=== PATIENT | female | born 1990 | race Caucasian/White ===

== ENCOUNTER 2022-01-22 07:05 | Inpatient (IN) | payer OTHER ==
[~2022-01-22] VITALS: Ht 175.3 cm; Wt 126.1 kg
--- NOTE | 2022-01-22 08:10 | NUR ---
RT COLLECTED RAPID COVID, FLU, AND RSV SWABS USING IN HOUSE LAB WITH NO COMPLICATIONS AT THIS TIME.
--- NOTE | 2022-01-22 10:20 | PR ---
[facility] [address] [facility] [place], [place] [address] Signed Progress Notes IP Datetime Report Generated by CPN: 01/22/2022 10:20 PROGRESS NOTES: [id number] Impression: Normal Progression of Labor Procedures: Artificial ROM; Scalp Electrode Plan: Continue Present Management; Anticipate Vaginal Delivery VITAL SIGNS: [id number] Vital Signs: Reviewed; Within Normal Limits EXAM: [id number] Dilatation: 8.0 Effacement: 95 Station: -2 Contractions: every 2-3 minutes MEMBRANES: [id number] Membranes Status: Ruptured Comments: Tolerating contractions, doing well. DIfficulty keeping FHR monitored, so scalp electrode applied. FETUS A: [id number] FHR Baseline: 145 Variability: Moderate 6-25bpm Accelerations: 15X15 FETUS B: [id number] Signing Physician: Ermias Babcock MD Copies: ~ *Electronically Signed* 01/22/22 1020 ERMIAS BABCOCK MD PATIENT NAME: AGNES HURST PROGRESS NOTE DATE OF : [birth year] PHYSICIAN: ERMIAS BABCOCK MD RPT #: [id number] REPORT IS CONFIDENTIAL AND NOT TO BE RELEASED WITHOUT AUTHORIZATION
--- NOTE | 2022-01-22 10:49 | PR ---
[facility] [address] [facility] [place], [place] [address] Signed Progress Notes IP Datetime Report Generated by CPN: 01/22/2022 10:49 PROGRESS NOTES: [id number] Impression: Normal Progression of Labor Procedures: Artificial ROM; Scalp Electrode Plan: Continue Present Management; Anticipate Vaginal Delivery VITAL SIGNS: [id number] Vital Signs: Reviewed; Within Normal Limits EXAM: [id number] Dilatation: 9.0 Effacement: 95 Station: -1 Contractions: every 2-3 minutes MEMBRANES: [id number] Membranes Status: Ruptured ROM Note: By Dr. Babcock Comments: Beginning to feel pushy, still with anterior lip, tried "Hands-Knees", will try on left side. FETUS A: [id number] FHR Baseline: 145 Variability: Moderate 6-25bpm Accelerations: 15X15 FETUS B: [id number] Signing Physician: Ermias Babcock MD Copies: ~ *Electronically Signed* 01/22/22 1049 ERMIAS BABCOCK MD PATIENT NAME: AGENS HURST PROGRESS NOTE DATE OF : [birth year] PHYSICIAN: ERMIAS BABCOCK MD RPT #: [id number] REPORT IS CONFIDENTIAL AND NOT TO BE RELEASED WITHOUT AUTHORIZATION
--- NOTE | 2022-01-22 11:27 | PR ---
[facility] [address] [place], [place] [address] Signed Progress Notes IP Datetime Report Generated by CPN: 01/22/2022 11:27 PROGRESS NOTES: [id number] Impression: Normal Progression of Labor Other Impressions: Slow progress Procedures: Artificial ROM; Scalp Electrode Other Procedures: Call for Epidural Plan: Continue Present Management; Anticipate Vaginal Delivery VITAL SIGNS: [id number] Vital Signs: Reviewed; Within Normal Limits EXAM: [id number] Dilatation: 9.5 Effacement: 95 Station: -1 Contractions: every 2-3 minutes MEMBRANES: [id number] Membranes Status: Ruptured ROM Note: By Dr. Babcock Comments: Patient getting very uncomfortable, still with anterior lip despite "Hands-Knees", Left lateral, High Fowlers positions. DIfficult to tell if JOCELYN or ROP due to patient discomfort. Will get Epdural, then IUPC and better exam. Patient agrees. FETUS A: [id number] FHR Baseline: 145 Variability: Moderate 6-25bpm Accelerations: 15X15 FETUS B: [id number] Signing Physician: James Babcock MD Copies: ~ *Electronically Signed* 01/22/22 1127 JAMES BABCOCK MD PATIENT NAME: AGNES HURST PROGRESS NOTE DATE OF : [birth year] PHYSICIAN: JAMES BABCOCK MD RPT #: [id number] REPORT IS CONFIDENTIAL AND NOT TO BE RELEASED WITHOUT AUTHORIZATION
--- NOTE | 2022-01-22 13:06 | PR ---
[facility] [address] [place], [place] [address] Signed Progress Notes IP Datetime Report Generated by CPN: 01/22/2022 13:05 PROGRESS NOTES: [id number] Impression: Non-reassuring Heart Rate Other Impressions: Bradycardia Procedures: Artificial ROM; Scalp Electrode Other Procedures: Call for Epidural Plan: Deliver- Section Other Plans: Code 4 Informed Consent Obtain: Section Delivery VITAL SIGNS: [id number] Vital Signs: Reviewed; Within Normal Limits EXAM: [id number] Dilatation: 9.5 Effacement: 95 Station: -1 Contractions: every 2-3 minutes MEMBRANES: [id number] Membranes Status: Ruptured ROM Note: By Dr. Babcock Comments: Late Entry: Bradycardia, tried hands-knees, left lateral, scalp stimulation, tried pushing, but unable to get FHR back to normal. Code 4 C/S called; discussed with patient aned , received verbal consent, patient taken to OR immediately. FETUS A: [id number] FHR Baseline: 145 Variability: Moderate 6-25bpm Accelerations: 15X15 FETUS B: [id number] Signing Physician: Ermias Babcock MD Copies: ~ *Electronically Signed* 01/22/22 1300 ERMIAS BABCOCK MD PATIENT NAME: AGNES HURST PROGRESS NOTE DATE OF : [birth year] PHYSICIAN: ERMIAS BABCOCK MD RPT #: [id number] REPORT IS CONFIDENTIAL AND NOT TO BE RELEASED WITHOUT AUTHORIZATION
--- NOTE | 2022-01-22 13:19 | NUR ---
01/22/22 1319 Tonie Rice 1306-PATIENT ARRIVED BACK TO ROOM 104 FOR RECOVERY. PATIENT AWAKE ON RA RR EVEN. DENIES PAIN OR NAUSEA. SPINAL LEVEL AT L1. REPORTS "LITTLE NUMBNESS/TINGLING TO HANDS BUT GETTING BETTER" BROOKE CATHETER DRAINING YELLOW URINE. FUNDUS FIRM LIGHT RUBRA DRAINAGE AT UMBILICUS. SR. IVF INFUSING LR WITH 20 PITOCIN TO RIGHT HAND CDI. 1317-PATIENT FEEDING BABY TO BREAST MICHAEL RN AT BEDSIDE ASSISTING. HOB IS ELEVATED. DENIES PAIN OR NAUSEA.
--- NOTE | 2022-01-23 12:31 | PR ---
[facility] [address] [facility] [place], [place] [address] Signed PP Progress Notes Datetime Report Generated by CPN: 01/23/2022 12:31 SUBJECTIVE: [id number] Pain: Within Normal Limits Nausea/Vomiting: Denies Vital Signs: [id number] Vital Signs: Reviewed; Within Normal Limits Notable Details: PP Hgb/Hct = 11.0/33.8 EXAM: Ongoing Abdomen/Uterus: Normal Lochia: Normal Extremities: Normal Incision: Normal IMPRESSION/PLAN/PROCEDURES: [id number] Impression: Normal Progression Plan: Continue Present Management Procedures: None Progress Notes: Doing well, without complaint, Mccormick out and voiding without difficulty, tolerating foods well, moving around room without problems. Signing Physician: Ermias Babcock MD Copies: ~ *Electronically Signed* 01/23/22 1231 ERMIAS BABCOCK MD PATIENT NAME: AGNES HURST PROGRESS NOTE DATE OF : 91 PHYSICIAN: ERMIAS BABCOCK MD RPT #: [id number] REPORT IS CONFIDENTIAL AND NOT TO BE RELEASED WITHOUT AUTHORIZATION
--- NOTE | 2022-01-23 12:36 | OR ---
[facility] [address] [facility] [place], [place] [address] Signed DATE OF OPERATION: 01/22/2022 SURGEON: James Ochoa MD PREOPERATIVE DIAGNOSIS: Term , Active labor, bradycardia. POSTOPERATIVE DIAGNOSIS: Term , Active labor, bradycardia. PROCEDURE: Emergency low transverse segment section delivery live female . REGISTERED NURSE SURGICAL SERVICES: Dr. Lynch. ANESTHESIA: Spinal. ESTIMATED BLOOD LOSS: 700 mL. COMPLICATIONS: None. DRAINS: Mccormick to bladder. FINDINGS: Live female , Apgars 8 and 9. Weight 7 pounds 11 ounces. Normal uterus, normal tubes and ovaries bilateral. Infant was noted to be in the vertex ROP presentation. DESCRIPTION OF PROCEDURE: The patient was brought to the operating room, placed in the supine position after quickly obtaining adequate spinal anesthesia, the patient was prepped and draped in the usual sterile fashion. Mccormick catheter placed in the bladder. Pfannenstiel skin incision made with a scalpel and extended through the subcutaneous tissue with a scalpel. The fascia was then nicked with scalpel and extended in the transverse fashion using curved scissors. The underlying abdominal musculature was bluntly and sharply from the fascia above and below the incision. The abdominal musculature was Electronically Signed By: JAMES OCHOA MD 01/23/22 1236 PATIENT NAME: HURSTDAYAAGNESFRANK ERICKSONZABETH OPERATIVE REPORT DATE OF : [birth year] REPORT #: [id number] PHYSICIAN: JAMES OCHOA MD PCP: NO PRIMARY CARE PHYSICIAN REPORT IS CONFIDENTIAL AND NOT TO BE RELEASED WITHOUT AUTHORIZATION [facility] [address] [place], [place] [address] Signed bluntly along the midline. The peritoneum was opened with finger dissection and bluntly opened. The Solo self-retaining retractor was inserted into the incision. The lower uterine segment identified and nicked with the scalpel. Finger dissection was used to open the uterine incision in a transverse fashion. Infant noted to be in the vertex ROP presentation. The head was wedged in the pelvis, but was delivered through the incision. The rest of the infant was then easily delivered from the incision. The cord was doubly clamped and cut. The infant passed off table in good condition awaiting bobbin washer. A segment of cord was then passed off the table to collect cord gases. The placenta was then manually removed. The uterine cavity explored a lap pad to remove any retained membranes. There was a small extension of the incision down on the right lateral side, this was closed with a running locking stitch of 0 Monocryl suture up to the angle. An angled stitch of 0 Monocryl was then placed, on one sidee of the incision and a running locking stitch of 0 Monocryl starting at the other end used to close the incision. A second running stitch of 0 Monocryl was used to imbricate the 1st layer. The entire pelvis was irrigated, suctioned, examined. The superficial bleeding spots were cauterized with the Bovie. The repair of the right extension was then examined. There was still a small amount of bleeding, so a jddbwa-of-oipvj stitch of 0 Monocryl was placed at the end of the extension while finger was placed behind the broad ligament to make sure no bowel or pelvic structures were caught within the closure with this being tied. The area showed good hemostasis. Tisseel was placed along the entire incision to further help with hemostasis. All instruments were removed from the abdomen. The Solo retractor removed and the incision irrigated, suctioned, examined noted to have good hemostasis. A sheet of ACell was placed over the lower uterine segment to help with healing and then the anterior wall peritoneum closed using running stitch of 2-0 Vicryl suture. The abdominal musculature was reapproximated using interrupted stitches of 0 Vicryl suture. The abdominal wall incision was irrigated, suctioned, and examined, and any bleeding spots cauterized with the Bovie. The fascia was then closed using 2 running stitches of 0 Vicryl suture meeting in the midline. Subcutaneous tissue was irrigated, suctioned, and examined, and any bleeding spots were cauterized with the Bovie. Subcutaneous tissue was closed using interrupted stitches of 3-0 Vicryl sutures. Skin was reapproximated using skin clips. The patient tolerated the procedure well, went to recovery room in good condition. The sponge, needle, and instrument count correct at the end of the procedure. MD JOSEF Dick/CANDEL Electronically Signed By: JAMES OCHOA MD 01/23/22 1236 PATIENT NAME: AGNES HURST OPERATIVE REPORT DATE OF : [birth year] REPORT #: [id number] PHYSICIAN: JAMES OCHOA MD PCP: NO PRIMARY CARE PHYSICIAN REPORT IS CONFIDENTIAL AND NOT TO BE RELEASED WITHOUT AUTHORIZATION [facility] [address] [place] [address] Signed /[id number] Copies: ~ Electronically Signed By: JAMES OCHOA MD 01/23/22 1236 PATIENT NAME: AGNES HURST OPERATIVE REPORT DATE OF : [birth year] REPORT #: [id number] PHYSICIAN: JAMES OCHOA MD PCP: NO PRIMARY CARE PHYSICIAN REPORT IS CONFIDENTIAL AND NOT TO BE RELEASED WITHOUT AUTHORIZATION
--- NOTE | 2022-01-24 10:41 | PR ---
[facility] [address] [place] [address] Signed PP Progress Notes Datetime Report Generated by CPN: 01/24/2022 10:41 SUBJECTIVE: [id number] Pain: Within Normal Limits Nausea/Vomiting: Denies Vital Signs: [id number] Vital Signs: Reviewed; Within Normal Limits Notable Details: PP Hgb/Hct = 11.0/33.8 EXAM: Ongoing Abdomen/Uterus: Normal Lochia: Normal Extremities: Normal Incision: Normal IMPRESSION/PLAN/PROCEDURES: [id number] Impression: Normal Progression Plan: Discharge Procedures: None Progress Notes: Doing well, without complaint, ready to go home. Signing Physician: Ermias Babcock MD Copies: ~ *Electronically Signed* 01/24/22 1041 ERMIAS BABCOCK MD PATIENT NAME: AGNES HURST PROGRESS NOTE DATE OF : [birth year] PHYSICIAN: ERMIAS BABCOCK MD RPT #: [id number] REPORT IS CONFIDENTIAL AND NOT TO BE RELEASED WITHOUT AUTHORIZATION
== END 2022-01-24 13:50 | disposition home or self-care (01) | DRG 787 ==
LOC: FBCO 07:05 → FBC 07:35 → FBCO 01-24 06:33 → FBC 01-24 13:50
PROVIDERS: ADMIT General Practice; ATTEND General Practice
PROC: 10D00Z1 Extraction of Products of Conception, Low, Open Approach (ICD-10-PCS; principal; 2022-01-22 12:11)
DX: O76 Abnormality in fetal heart rate and rhythm complicating labor and delivery (principal); D62 Acute posthemorrhagic anemia; Z37.0 Single live birth; Z20.822 Contact with and (suspected) exposure to COVID-19
CPT/HCPCS: 01961; 36415; 76942; 82803; 85027; 86850; 86900; 86901; A9270; C9803; J1100; J1644; J1885; J2001; J2300; J2405; J2590; J2795; J3010; J7121; U0003